=== PATIENT | female | born 1990 ===

== ENCOUNTER 2017-03-31 20:01 | Emergency (ER) | payer MEDICAID | END 2017-03-31 20:32 | disposition left against medical advice (07) | LOC: C.ER 20:01 | DX: R10.9 Unspecified abdominal pain (principal); Z02.9 Encounter for administrative examinations, unspecified ==

== ENCOUNTER 2018-10-13 18:24 | Emergency (ER) | payer OTHER, MEDICAID ==
[2018-10-13 18:52] VITALS: BP 111/66; PULSE 80; RESP 18; TEMP 98.5; O2SAT 99
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
== END 2018-10-13 20:17 | disposition home or self-care (01) ==
LOC: C.ER 18:24
DX: S09.90XA Unspecified injury of head, initial encounter (principal); S13.4XXA Sprain of ligaments of cervical spine, initial encounter; S43.402A Unspecified sprain of left shoulder joint, initial encounter; V43.54XA Car driver injured in collision with van in traffic accident, initial encounter

== ENCOUNTER 2018-12-01 17:39 | Emergency (ER) | payer MEDICAID, OTHER ==
[2018-12-01 18:54] LABS: HCG,QUALITATIVE URINE POSITIVE (NEGATIVE)
[2018-12-01 18:58] LABS: BASO % 0.6 % (0.0-2.0); EOS % 0.4 % (0.0-4.0); HEMOGLOBIN 12.7 g/dL (11.0-16.0); LYMPH # 2.2 K/uL (1.0-4.3); MEAN CELL VOLUME 88.1 fL (81.0-99.0); MEAN CORPUSCULAR HEMOGLOBIN 28.1 pg (27.0-31.0); MEAN CORPUSCULAR HGB CONC 31.9 g/dL (33.0-37.0); MONO # 0.5 K/uL (0.0-0.8); MONO % 7.5 % (0.0-10.0); NEUT # 3.5 K/uL (1.8-7.0); NEUT % 55.5 % (50.0-75.0); NRBC % 0.1 % (0.0-2.0); RBC 4.5 Mil/uL (3.80-5.20); RED CELL DISTRIBUTION WIDTH 14.2 % (11.5-14.5); WHITE BLOOD COUNT 6.2 K/uL (4.8-10.8)
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
[2018-12-01 19:06] LABS: ALB/GLOB RATIO 1.4 (1.0-2.1); ALBUMIN 4.4 g/dL (3.5-5.0); ALT/SGPT 19 U/L (9-52); AST/SGOT 24 U/L (14-36); BLOOD UREA NITROGEN 8 mg/dL (7-17); CALCIUM 9.9 mg/dl (8.6-10.4); GFR NON-AFRICAN AMERICAN > 60
[2018-12-01 19:08] LABS: SQUAMOUS EPITHIAL 1 /hpf (0-5); URINE BACTERIA OCC (<OCC); URINE BILIRUBIN NEGATIVE (NEGATIVE); URINE BLOOD 3+ (NEGATIVE); URINE CLARITY Hazy (Clear); URINE COLOR Yellow (YELLOW); URINE GLUCOSE (UA) NORMAL (Normal); URINE LEUKOCYTE ESTERASE NEG Leu/uL (Negative); URINE PROTEIN 1+ mg/dL (NEGATIVE); URINE UROBILINOGEN NORMAL mg/dL (0.2-1.0)
[2018-12-01 20:56] VITALS: BP 127/81; PULSE 82; RESP 18; TEMP 98.8
[2018-12-01 20:57] VITALS: O2SAT 100
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
== END 2018-12-01 21:49 | disposition home or self-care (01) ==
LOC: C.ER 17:39
DX: O03.9 Complete or unspecified spontaneous abortion without complication (principal)